=== PATIENT | female | born 1950 | race Caucasian/White ===

== ENCOUNTER 2016-12-14 14:49 | Emergency (ER) | payer OTHER, BC ==
[~2016-12-14] VITALS: Ht 160 cm; Wt 89.8 kg
[2016-12-14 16:08] LABS: BASOPHIL COUNT 0.1 K/uL (0-0.1); EOSINOPHIL (%) 1.1 % (0-5); EOSINOPHIL COUNT 0.1 K/uL (0-0.3); HEMATOCRIT 42.6 % (36.0-46.0); IMMATURE GRANULOCYTE (%) 0.5 % (0.0-0.7); INSTRUMENT ABS NEUTROPHIL CT 5.7 K/uL; LYMPHOCYTE COUNT 1.8 K/uL (1.0-2.8); MCH 29.4 PG (29.0-34.0); MCHC 32.6 G/DL (30.0-36.0); MCV 90.1 FL (83-99); MEAN PLAT.VOLUME 8.9 uM^3 (9.5-12.4); MONOCYTE (%) 8.4 % (3-12); MONOCYTE COUNT 0.7 K/uL (0-0.8); NEUTROPHIL (%) 67.4 % (45-76); NEUTROPHIL COUNT 5.7 K/uL (1.8-6.4); PLATELET COUNT 200 K/uL (156-360); RBC DIS.WIDTH-CV 13.5 % (11.8-14.6); RBC DIS.WIDTH-SD 44.8 % (39-53); RED BLOOD COUNT 4.73 M/uL (3.80-5.20); WHITE BLOOD COUNT 8.4 K/uL (4.1-10.2)
[2016-12-14 16:17] LABS: CHLORIDE 106 mEq/L (99-109); POTASSIUM 3.9 mEq/L (3.7-5.4); SODIUM 141 mEq/L (136-147)
[2016-12-14 16:19] LABS: GLUCOSE 156 mg/dL (70-99)
[2016-12-14 16:20] LABS: ANION GAP 9 MEQ/L (2-14)
[2016-12-14 16:21] LABS: TOTAL BILIRUBIN 0.6 mg/dL (0.0-1.0)
[2016-12-14 16:22] LABS: ALKALINE PHOSPHATASE 100 IU/L (3-129)
[2016-12-14 16:24] LABS: GFR ESTIMATE (CALCULATED) 59 mL/min/; UREA NITROGEN (BUN) 22 mg/dL (9-23)
[2016-12-14 16:26] LABS: LIPASE 18 U/L (1.0-51.0)
[2016-12-14 16:32] LABS: TROP-I INTERPRETATION NEGATIVE; TROPONIN-I < 0.01 ng/mL (0.0-0.30)
[2016-12-14 21:42] VITALS: BP 139/83
== END 2016-12-14 21:42 | disposition home or self-care (01) ==
LOC: EME 14:49
PROVIDERS: Emergency Medicine
DX: R07.81 Pleurodynia (principal)
CPT/HCPCS: 71010; 71275; 80048; 80053; 83690; 84484; 85025; 85379; 93005; 99281; 99284; J3010